=== PATIENT | female | born 1950 | race Hispanic/Latino ===

== ENCOUNTER → 2021-12-26 | Outpatient (CLI) | payer OTHER ==
[~2021-12-26] MED LIST: IOHEXOL 350 MG/ML 100ML INFUS..BTL IV ONE
== END | disposition home or self-care (01) ==
LOC: RAH 14:34
PROVIDERS: ATTEND Family Medicine
DX: I77.819 Aortic ectasia, unspecified site (principal); I70.0 Atherosclerosis of aorta
CPT/HCPCS: 71270; Q9967